=== PATIENT | male | born 1960 | race Caucasian/White ===

== ENCOUNTER → 2019-02-06 | Outpatient (CLI) | payer OTHER | LOC: COL.RAD 07:09 | DX: R51 Headache (principal) | CPT/HCPCS: A9585 ==

== ENCOUNTER → 2023-12-23 | Outpatient (CLI) | payer OTHER ==
[~2023-12-23] MED LIST: Gadoterate 20 ML VIAL IV ONE
== END ==
LOC: COL.RAD 08:32
DX: R97.20 Elevated prostate specific antigen [PSA] (principal)
CPT/HCPCS: A9575